=== PATIENT | male | born 1995 | race Caucasian/White ===

== ENCOUNTER 2023-06-25 20:00 | Emergency (ER) | payer OTHER, MEDICAID, SELFPAY ==
[2023-06-25 20:34] VITALS: BP 112/61; PULSE 74; RESP 16; TEMP 37; O2SAT 100; BMI 29.8
--- NOTE | 2023-06-25 20:37 | DI.RAD.S_ITS ---
PROCEDURE: XR FINGER LT MIN 2V INDICATIONS: bent finger back while wrestling TECHNIQUE: AP hand, 2 views of the 3rd digit acquired. COMPARISON: None. FINDINGS: Bones: There is a small linear calcification along the volar aspect of the 3rd proximal phalanx suggestive of a small avulsion fracture. No dislocations. No suspicious bony lesions. Soft tissues: There is periarticular soft tissue swelling at the 3rd proximal to phalangeal joint. IMPRESSION: 1. Small avulsion fracture along the volar aspect of the 3rd proximal phalanx at the PIP joint. Dictated by: Denis Cochran M.D. on 06/25/2023 at 22:15 Approved by: Densi Cochran M.D. on 06/25/2023 at 22:18
--- NOTE | 2023-06-25 22:05 | ED_ITS ---
HPI - Extremity Injury (Upper) General Chief Complaint: Extremity Injury, Upper Stated Complaint: Thinks broken finger Time Seen by Provider: 06/25/23 20:06 Source: patient Mode of arrival: Ambulatory History of Present Illness HPI narrative: 27-year-old male nonsmoker without chronic medical history presents with a chief complaint of an injury to his left middle finger yesterday. He states that he was sparring with a much larger partner who rolled over on his finger causing it to bend backwards. He felt immediate pain and states that there was a deformity that he realigned. He denies any numbness or tingling but does have pain in his left middle finger. Denies other injury and is otherwise well and free of complaint. Related Data Home Medications Medication Instructions Recorded Confirmed multivitamin (Multiple Vitamins 1 tab PO QDAY ##0 09/10/16 tablet) spironolactone 25 mg tablet 25 mg QDAY ##0 02/22/17 Previous Rx's Medication Instructions Recorded EPINEPHRINE (#EPI EZ PEN) 1 mg IM PRN ##1 07/15/11 VITAMIN D (Vitamin D3) 1,000 u PO QDAY #90 tabs 07/14/13 albuterol sulfate 2.5 mg/3 mL 3 ml INH PRN #25 mL 09/17/16 (0.083 %) solution for nebulization beclomethasone dipropionate 80 0 INH BID #2 inhalations 09/17/16 mcg/actuation aerosol inhaler (Qvar) sumatriptan succinate 100 mg 100 mg PO PRN PRN #9 tabs 11/06/16 tablet (Imitrex) prednisone 20 mg tablet 20 mg PO QDAY #5 tabs 03/01/17 Allergies Allergy/AdvReac Type Severity Reaction Status Date / Time nghia Allergy Severe ANAPHYLAXIS Verified 06/25/23 20:34 hydromorphone Allergy Intermediate HIVES Verified 06/25/23 20:34 amoxicillin Allergy Mild RASH Verified 06/25/23 20:34 codeine Allergy Mild RASH, Verified 06/25/23 20:34 DYSPNEA latex Allergy Mild REDNESS/SWE Verified 06/25/23 20:34 LLING ibuprofen Allergy Unknown Verified 06/25/23 20:34 Review of Systems Review of Systems Narrative: GENERAL: Denies chills, fatigue, malaise, fever, sweats. HEENT: Denies sinus pain, ear pain, sore throat, difficulty swallowing, dizziness. RESPIRATORY: Denies dyspnea, cough, wheezing, hemoptysis, sputum. CARDIOVASCULAR: Denies chest pain, palpitations, orthopnea, edema, GASTROINTESTINAL: Denies nausea, vomiting, abdominal pain, diarrhea, constipation, melena. : Denies dysuria, frequency, incontinence, hematuria, urinary retention. MUSCULOSKELETAL: See HPI SKIN: Denies rash, skin lesions, or other NEUROLOGIC: Denies weakness, headache, numbness, change in speech, confusion, seizures, incoordination. PSYCHIATRIC: No concerning psychosocial issues. 12 point review of systems is negative except for those stated above Patient History Social History Smoking Status: Never smoker Smoking Status: Never smoker Substance Use Type: marijuana Exam Narrative Exam Narrative: GEN: AOx3 and in mild distress EYES: Pupils are equal, round, and reactive to light and accommodation. Extraoccular muscles are intact bilaterally. There is no subconjunctival hemorrhage or exudate. CHEST: Lungs are clear to auscultation bilaterally and free of wheezes, rales, or rhonchi. Heart rate is regular rhythm, there are no murmurs, clicks, rubs, or gallops. There is no chest wall tenderness. ABD: Abdomen is soft and nontender. There is no guarding or rebound. Bowel sounds are normal in all 4 quadrants. There is no mass or organomegaly. EXT: Slightly decreased range of motion of left middle finger secondary to pain, this is closed, isolated and neurovascularly intact, most tender at the proximal interphalangeal joint, full strength with flexion and extension, ligamentous injury thought to be unlikely SKIN: Warm, pink, and dry. No erythema or rash Initial Vital Signs Initial Vital Signs: Vital Signs Temperature 98.6 F 06/25/23 20:34 Pulse Rate 74 06/25/23 20:34 Respiratory Rate 16 06/25/23 20:34 Blood Pressure 112/61 06/25/23 20:34 Pulse Oximetry 100 06/25/23 20:34 Oxygen Delivery Method Room Air 06/25/23 20:34 Procedures Orthopedic Splinting/Casting Injury #1: Side: left Upper Extremity Injury Location: finger Upper Extremity Immobilizer: aluminum form splint Post splinting neuro exam: intact Post splinting vascular exam: intact Placed by: Nursing Course Orders Ordered: ED Orders 06/25/23 20:37 XR finger LT min 2V Stat Vital Signs Vital signs: Vital Signs - 8 hr 06/25/23 20:34 Temperature 98.6 F Pulse Rate 74 Respiratory Rate 16 Blood Pressure 112/61 Pulse Oximetry 100 Oxygen Delivery Method Room Air MDM - Extremity Injury (Upper) MDM Narrative Medical decision making narrative: [27] year old patient presents with left middle finger injury Multiple etiologies for patient's symptoms considered including, but not limited to: [Fracture versus dislocation versus sprain versus ligamentous injury versus other] Prior Charts reviewed in our EMR Primary Historian: patient Imaging reviewed: Small avulsion fracture along the volar aspect of the 3rd proximal phalanx at the PIP History and physical exam are reassuring, this is closed, isolated and neurovascularly intact, Findings and discharge diagnosis discussed with patient/family followed by verbalization of understanding Return precautions discussed with patient/family whom verbalize understanding of diagnosis and plan Discharge Plan Departure Patient Disposition: Home Clinical Impression: Closed fracture of phalanx of left middle finger Instructions: DI for Finger Fracture Activity Restrictions/Additional Instructions: *You have been diagnosed with [small avulsion fracture of the 1st knuckle of your left middle finger.] *What to do: *Please continue to take your regular medications as directed. [ ] New medication prescriptions sent to your pharmacy: [ ] [ ] New medication written as a paper prescription [x] Tylenol and occasional Motrin for pain *Please follow up with [ Micheal] of [facility] in 2-3 days, call for an appointment. Let them know you were seen in the Emergency Department and that we ask that you be seen in follow up. We will electronically transmit a record of today's note if your PCP is in our system *Return to Emergency Department if you should have any new, worsening or concerning symptoms, such as [worsening pain, significant swelling, cold ex tremities, numbness, tingling, weakness or other bothersome symptoms Prescriptions: No Action EPINEPHRINE (#EPI EZ PEN) 1 mg IM PRN Qty: 1 1RF VITAMIN D (Vitamin D3) 1,000 u PO QDAY Qty: 90 1RF multivitamin [Multiple Vitamins] 1 EACH tablet 1 tab PO QDAY Qty: 0 albuterol sulfate 2.5 MG/3 ML solution for nebulization 3 ml INH PRN Qty: 25 0RF beclomethasone dipropionate [Qvar] 80 MCG/PUFF aerosol 0 INH BID Qty: 2 3RF sumatriptan succinate [Imitrex] 100 MG tablet 100 mg PO PRN PRNQty: 9 1RF spironolactone 25 MG tablet 25 mg QDAY Qty: 0 prednisone 20 MG tablet 20 mg PO QDAY Qty: 5 0RF Stand Alone Forms: Patient Portal/API
[2023-06-25 22:55] VITALS: BP 128/74; PULSE 76; RESP 18; O2SAT 99
== END 2023-06-25 22:55 | disposition home or self-care (01) ==
PROVIDERS: Emergency Provider Emergency Medicine
DX: S62.613A Displaced fracture of proximal phalanx of left middle finger, initial encounter for closed fracture (principal); X58.XXXA Exposure to other specified factors, initial encounter
CPT/HCPCS: 29130; 73140; 99283

== ENCOUNTER 2024-04-01 12:04 | Emergency (ER) | payer OTHER, MEDICAID, SELFPAY ==
[2024-04-01] VITALS (7 sets, daily range): BP systolic 124–142; BP diastolic 74–89; PULSE 120–128; RESP 16–22; TEMP 36.8; O2SAT 96–100; BMI 27.2
--- NOTE | 2024-04-01 12:14 | ED_ITS ---
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 2014), and residual VSD closure 2017. 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 Templeton on 03/01/24. Left main also requiring PCI to left main coronary artery on 03/09/2024 He is presenting today with gross drainage from his right groin incision. They went in there for surgery at some point. He now has some swelling and drainage. He is noted to be tachycardic in the 120s. He reports that before surgery his heart rate was in the 80s but since surgery it has been 110-120. He reports some shortness of breath with exertion. He reports that providers are wanting his heart to strengthen before they Re add his medications. Upon reviewing nose from [facility] it is confirmed that he has been persistently tachycardic 110 to 120s. Patient reports that he has had low-grade temperature last night there is area in his groin that reopened from surgery provider yesterday tried to just glue it however it does feel a little bit swollen Related Data Home Medications Medication Instructions Recorded Confirmed multivitamin (Multiple Vitamins 1 tab PO QDAY ##0 09/10/16 09/11/23 tablet) carvedilol 25 mg tablet 25 mg PO BID 09/11/23 09/11/23 carvedilol 6.25 mg tablet 6.25 mg PO BID 09/11/23 09/11/23 sacubitril 24 mg-valsartan 26 mg 1 tab PO BID 11/04/23 11/04/23 tablet (Entresto) Previous Rx's Medication Instructions Recorded EPINEPHRINE (#EPI EZ PEN) 1 mg IM PRN ##1 07/15/11 albuterol sulfate 2.5 mg/3 mL 3 ml INH PRN #25 mL 09/17/16 (0.083 %) solution for nebulization Allergies Allergy/AdvReac Type Severity Reaction Status Date / Time nghia Allergy Severe ANAPHYLAXIS Verified 09/11/23 09:11 hydromorphone Allergy Intermediate HIVES Verified 09/11/23 09:11 amoxicillin Allergy Mild RASH Verified 09/11/23 09:11 codeine Allergy Mild RASH, Verified 09/11/23 09:11 DYSPNEA latex Allergy Mild REDNESS/SWE Verified 09/11/23 09:11 LLING ibuprofen Allergy Unknown Verified 09/11/23 09:11 Penicillins Allergy Rash Verified 04/01/24 12:08 Patient History Social History Smoking Status: Former smoker Smoking Status: Former smoker Substance Use Type: does not use Exam Initial Vital Signs Initial Vital Signs: Vital Signs Temperature 98.3 F 04/01/24 12:08 Pulse Rate 120 H 04/01/24 12:08 Respiratory Rate 16 04/01/24 12:08 Blood Pressure 142/83 H 04/01/24 12:08 Pulse Oximetry 99 04/01/24 12:08 Oxygen Delivery Method Room Air 04/01/24 12:08 GENERAL: Alert pleasant 28-year-old male HEENT: Head atraumatic,EOMI, pupils reactive, face symmetric, moist mucous membranes CARDIOVASCULAR: Tachycardic regular RESPIRATORY: Breath sounds equal bilaterally, no wheezes rales or rhonchi. No conversational dyspnea ABDOMEN: Soft, nontender. Normoactive bowel sounds all 4 quadrants. No guarding or rebound. EXTREMITIES: Normal range of motion, no clubbing or edema. Neurovascularly intact NEUROLOGICAL: Alert and oriented x4.Normal gait and speech. SKIN: Warm, dry, no laceration, no petechiae, no rashes or lesions. Course Orders Ordered: ED Orders 04/01/24 12:28 US arterial duplex LE RT Stat 04/01/24 12:30 EKG-12 Lead Stat 04/01/24 13:15 Urinalysis and Microscopic Stat 04/01/24 13:29 Blood Culture Stat 04/01/24 13:40 Complete Blood Count AUTO DIFF Stat Comprehensive Metabolic Panel Stat Lactate (Lactic Acid) Stat NT-proBNP (BNP-Adult 18+) Stat PTT Partial Thromboplastin Demetri Stat Procalcitonin Stat Prothrombin Time INR Stat Troponin & CK Cardiac Panel Stat 04/01/24 14:58 Chest [XR chest 1V] Stat Vital Signs Vital signs: Vital Signs - 8 hr 04/01/24 12:08 04/01/24 12:15 04/01/24 12:15 Temperature 98.3 F Pulse Rate 120 H 121 H Respiratory Rate 16 Blood Pressure 142/83 H 129/84 Pulse Oximetry 99 96 Oxygen Delivery Method Room Air 04/01/24 12:30 04/01/24 13:00 04/01/24 13:30 Temperature Pulse Rate 122 H 123 H 124 H Respiratory Rate 20 Blood Pressure Pulse Oximetry 100 99 Oxygen Delivery Method 04/01/24 14:34 04/01/24 14:34 04/01/24 15:00 Temperature Pulse Rate 128 H 122 H Respiratory Rate 20 22 Blood Pressure 139/89 Pulse Oximetry 99 96 Oxygen Delivery Method Room Air 04/01/24 15:00 Temperature Pulse Rate Respiratory Rate Blood Pressure 124/74 Pulse Oximetry Oxygen Delivery Method MDM - Wound/Laceration Lab Data 04/01/24 13:40 04/01/24 13:40 Labs: Lab Results 04/01/24 04/01/24 Range/Units 13:15 13:40 WBC 9.9 (4.5-11.0) X10^3/uL RBC 3.56 L (4.5-5.9) X10^6/uL Hgb 10.7 L (13.5-17.5) g/dL Hct 33.1 L (41-53) % MCV 93.1 (80-100) fL MCH 30.0 (26-34) PG MCHC 32.2 (30-36) % RDW 18.7 H (11.6-14.8) % Plt Count 309 (150-400) X10^3/uL Neut % (Auto) 79.7 H (50-75) % Lymph % (Auto) 8.7 L (25-40) % [place] % (Auto) 8.0 (3-14) % Eos % (Auto) 2.4 (2-4) % Baso % (Auto) 1.2 (0-2) % Neut # (Auto) 7900 H (8266-8385) /uL Lymph # (Auto) 900 L (5832-7503) /uL [place] # (Auto) 800 (0-900) /uL Eos # (Auto) 200 (0-450) /uL Baso # (Auto) 100 (0-100) /uL PT 19.5 H (9.4-12.5) SECONDS INR 1.7 H (0.9-1.3) APTT 38 H (25.1-36.5) SECONDS Sodium 138 (137-145) mmol/L Potassium 3.9 (3.4-5.1) mmol/L Chloride 99 (98-107) mmol/L Carbon Dioxide 29 (22-32) mmol/L BUN 18 (9-20) mg/dL Creatinine 1.19 (0.66-1.25) mg/dL Estimated GFR > 60 (>60) mL/min BUN/Creatinine Ratio 15.1 (6-22) Glucose 113 H (70-100) mg/dL Lactate 1.2 (0.7-2.1) mmol/L Calcium 9.4 (8.4-10.2) mg/dL Total Bilirubin 1.3 (0.2-1.3) mg/dL AST 34 (17-59) IU/L ALT 19 (<50) IU/L Alkaline Phosphatase 373 H (38-126) U/L Total Creatine Kinase 35 L (55-170) U/L Troponin I 0.059 H (0.01-0.034) ng/mL NT-Pro-B Natriuret Pep 50111 H (<125) pg/mL Total Protein 8.5 H (6.3-8.2) g/dL Albumin 4.1 (3.5-5.0) g/dL Globulin 4.4 H (1.7-4.1) g/dL Albumin/Globulin Ratio 0.9 L (1.0-2.8) Procalcitonin 0.075 (<0.5) ng/mL Urine Color Yellow Urine Appearance Clear Urine pH 6.5 (4.5-8.0) Ur Specific [place] 1.010 (1.000-1.035) Urine Protein Trace H (Negative) Urine Glucose (UA) Negative (Negative) g/dL Urine Ketones Negative (NEGATIVE) Urine Occult Blood Negative (Negative) Urine Nitrate Negative (Negative) Urine Bilirubin Negative (NEGATIVE) Urine Urobilinogen 0.2 (0.2) E.U./dL Ur Leukocyte Esterase Negative (NEGATIVE) Urine RBC None seen (0-5/HPF) Urine WBC None seen (0-5/HPF) Ur Squamous Epith Cells None seen (0-5/HPF) Urine Bacteria None seen (None) Ur Culture Indicated? Cult not indicated Vol Urine Centrifuged 10ml (spun) Imaging Data Chest x-ray: Radiologist's Impression: PROCEDURE: XR CHEST 1V INDICATIONS: short of breath TECHNIQUE: One view of the chest was acquired. COMPARISON: Atul Zuniga, VLADISLAV, CHEST 2 VIEW, 11/24/2016, 10:51. Atul Zuniga, VLADISLAV, CHEST 2 VIEW, 06/07/2015, 12:06. FINDINGS: Surgical changes and devices: Right chest wall pacemaker. Median sternotomy wires. Aortic valvuloplasty. Lungs and pleura: Prominent interstitial markings. Possible left pleural effusion. Mediastinum: Mediastinal contours appear normal. Heart size is enlarged. Bones and chest wall: No suspicious bony lesions. Overlying soft tissues appear unremarkable. IMPRESSION: Cardiomegaly with prominent interstitial markings and possible left pleural effusion. Findings are concerning for congestive heart failure. Dictated by: Corey Salinas M.D. on 04/01/2024 at 14:24 ECG Data Attestation: I personally reviewed and interpreted this ECG as follows: Prior ECG tracings: not available for review Interpretation: Paced rhythm rate 119 KS interval 130 QRS 164 QTC 565 [facility] Narrative Medical decision making narrative: [facility] CC: Right groin drainage after procedure Complicating co-morbidities: Complicated cardiac history recent surgery and hospitalization with Corroborating data: [ ] Data collected from:girlfriend Medical records reviewed: [facility] records have been reviewed Differential considered: Pulmonary embolism congestive heart failure, sepsis pseudoaneurysm abscess seroma Exam documented above, pertinent findings include: Right gumline fluctuation minimally erythematous gross clear drainage no foul difficult to palpate right femoral pulse Lab Test results independently reviewed as above. Pertinent findings: Troponin 0.059, BNP 80498, creatinine 1.19 Independently reviewed EKG as above paced rhythm no ischemic changes Imaging studies independently reviewed: Chest x-ray reviewed with possible left pleural effusion and cardiomegaly consistent for congestive heart failure. Ultrasound shows 9 mm saccular aneurysm along with a 6.9 cm complex fluid collection seroma or stoma in right groin Consultations: 15:50 Dr. Lagunas CVT at [facility], updated on patient's symptoms test results where that patient is refusing CT for PE which he was okay with. Not concerned about minimally elevated troponin. Talked about possible antibiotics for seroma but without fever leukocytosis agrees with no antibiotics. Recommends some sort of pressure and dressing like spandex shorts. He has a appointment with Cardiology April 05 and April 06 on already scheduled. Treatments: None Re-evaluations: Very difficult to start an IV required nursing peripheral IV placement Discussion: Patient 28-year-old male with significantly complicated cardiac history presenting today with drainage his right groin. There is a large seroma found 9 mm pseudo aneurysm also there. He is afebrile unlikely to be infected or abscess at this time. Patient is noted to be tachycardic he reports that he is constantly tachycardic which is confirmed by [facility] records. BNP is also noted to be elevated but he has not hypoxic he probably has high normal level he has no evidence of fluid overload at this time no peripheral edema on exam. He is also taking Lasix he reports that he gained 2 lb over last day or so and resumed his Lasix. Patient refused CT angio because he only has 1 kidney and does not want contrast. Again hypoxic is persistently tachycardic and has been though he is at risk he does not want to and understands. Patient overall surprisingly appears well. He does have fluid drainage in the right groin no significant erythema symptoms are consistent with a seroma Patient will follow-up this week at [facility] as previously scheduled no need for antibiotics at this time no evidence of sepsis. Discharge Plan Departure Patient Disposition: Home Clinical Impression: Seroma Activity Restrictions/Additional Instructions: *You have been diagnosed with seroma *What to do: Try to keep pressure on the right groin area. Lots of gauze bandage shorts. Please follow-up with your doctors this week on April 05 and April 06 as scheduled *Continue to take medications as directed *Follow up with your primary care provider in 2-3 days or call [phone] *Return to ER if you should have increasing shortness of breath fever redness or any new, worsening or concerning symptoms Prescriptions: No Action carvedilol 6.25 mg tablet 6.25 mg PO BID carvedilol 25 mg tablet 25 mg PO BID Entresto 24-26 mg tablet 1 tab PO BID EPINEPHRINE (#EPI EZ PEN) 1 mg IM PRN Qty: 1 1RF multivitamin [Multiple Vitamins] 1 EACH tablet 1 tab PO QDAY Qty: 0 albuterol sulfate 2.5 MG/3 ML solution for nebulization 3 ml INH PRN Qty: 25 0RF Referrals: Miscellaneous,Doctor, MD [Primary Care Provider] - Stand Alone Forms: Patient Portal/API
--- NOTE | 2024-04-01 12:28 | DI.US.S_ITS ---
PROCEDURE: US ARTERIAL DUPLEX LE RT INDICATIONS: Rule out pseudoaneurysm, possible abscess TECHNIQUE: Color and pulse Doppler interrogation was performed of the right lower extremity arterial system, with image documentation. COMPARISON: None. FINDINGS: Common femoral artery: Under crystal cm/sec, with triphasic flow. Deep femoral artery: 128 cm/sec, with triphasic flow. Rogers-scale imaging description: In the right groin there is a complex septated fluid collection with internal debris measuring 4.2 x 6.9 x 4.0 cm, possible seroma. There is outpouching at the distal common femoral artery just before the bifurcation measuring 9 x 8 x 6 mm with to and fro flow. IMPRESSION: 1. Small outpouching at the distal common femoral artery just before the bifurcation measures up to 9 mm, concerning for saccular aneurysm. 2. Complex collection in the right groin measuring up to 6.9 cm with internal debris, may represent seroma or hematoma. No internal flow is seen. Dictated by: Corey Salinas M.D. on 04/01/2024 at 14:00 Approved by: Corey Salinas M.D. on 04/01/2024 at 14:02
[2024-04-01 13:45] LABS: Appearance Urine UA CLEAR; Bilirubin Urine UA NEGATIVE (NEGATIVE); Color Urine UA YELLOW; Glucose Urine UA NEGATIVE (Negative); Ketones Urine UA NEGATIVE (NEGATIVE); Leukocyte Esterase Urine UA NEGATIVE (NEGATIVE); Nitrite Urine UA NEGATIVE (Negative); Occult Blood Urine UA NEGATIVE (Negative); Protein Urine UA TRACE (Negative); Urobilinogen Urine UA 0.2 E.U./dL (0.2); pH Urine UA 6.5 (4.5-8.0)
[2024-04-01 13:53] LABS: Add Manual Diff / Slide Review NO; Basophils Absolute Auto 100 /uL (0-100); Basophils Percent Auto 1.2 % (0-2); Eosinophils Absolute Auto 200 /uL (0-450); Eosinophils Percent Auto 2.4 % (2-4); Hematocrit 33.1 % (41-53); Hemoglobin 10.7 g/dL (13.5-17.5); Lymphocytes Absolute Auto 900 /uL (1100-4500); Lymphocytes Percent Auto 8.7 % (25-40); Mean Corpuscular HGB Conc 32.2 % (30-36); Mean Corpuscular Volume 93.1 fL (80-100); Monocytes Absolute Auto 800 /uL (0-900); Neutrophils Absolute Auto 7900 /uL (1500-7000); Neutrophils Percent Auto 79.7 % (50-75); Platelet Count 309 X10^3/uL (150-400); Red Blood Cell Count 3.56 X10^6/uL (4.5-5.9); Red Cell Distribution Width 18.7 % (11.6-14.8); White Blood Cell Count 9.9 X10^3/uL (4.5-11.0)
[2024-04-01 13:53] LABS: Bacteria Urine None Seen; Culture Indicated Urine Cult Not Indicated; RBC Urine None Seen (0-5/HPF); Squamous Epithelial Cell Urine None Seen (0-5/HPF); Urine Volume 10mL (spun); WBC Urine None Seen (0-5/HPF)
[2024-04-01 14:02] LABS: INR 1.7 (0.9-1.3); Prothrombin Time 19.5 SECONDS (9.4-12.5)
[2024-04-01 14:03] LABS: PTT Partial Thromboplastin Tim 38 SECONDS (25.1-36.5)
[2024-04-01 14:04] LABS: Alanine Aminotransferase 19 IU/L (<50); Albumin 4.1 g/dL (3.5-5.0); Albumin Globulin Ratio 0.9 (1.0-2.8); Alkaline Phosphatase 373 U/L (38-126); Aspartate Aminotransferase 34 IU/L (17-59); BUN Creatinine Ratio 15.1 (6-22); Bilirubin Total 1.3 mg/dL (0.2-1.3); Blood Urea Nitrogen 18 mg/dL (9-20); Calcium 9.4 mg/dL (8.4-10.2); Carbon Dioxide 29 mmol/L (22-32); Chloride 99 mmol/L (98-107); Creatine Kinase 35 U/L (55-170); Estimated Glomerular Filt Rate > 60 mL/min (>60); Globulin 4.4 g/dL (1.7-4.1); Glucose 113 mg/dL (70-100); HEMOLYSIS < 15 (0-50); Potassium 3.9 mmol/L (3.4-5.1); Sodium 138 mmol/L (137-145); Total Protein 8.5 g/dL (6.3-8.2)
[2024-04-01 14:05] LABS: Lactate (Lactic Acid) 1.2 mmol/L (0.7-2.1)
[2024-04-01 14:13] LABS: NT-proBNP (BNP-Adult 18+) 12200 pg/mL (<125)
[2024-04-01 14:16] LABS: Troponin I 0.059 ng/mL (0.01-0.034)
[2024-04-01 14:21] LABS: Procalcitonin 0.075 ng/mL (<0.5)
--- NOTE | 2024-04-01 14:58 | DI.RAD.S_ITS ---
PROCEDURE: XR CHEST 1V INDICATIONS: short of breath TECHNIQUE: One view of the chest was acquired. COMPARISON: VLADISLAV Miner, CHEST 2 VIEW, 11/24/2016, 10:51. VLADISLAV Miner, CHEST 2 VIEW, 06/07/2015, 12:06. FINDINGS: Surgical changes and devices: Right chest wall pacemaker. Median sternotomy wires. Aortic valvuloplasty. Lungs and pleura: Prominent interstitial markings. Possible left pleural effusion. Mediastinum: Mediastinal contours appear normal. Heart size is enlarged. Bones and chest wall: No suspicious bony lesions. Overlying soft tissues appear unremarkable. IMPRESSION: Cardiomegaly with prominent interstitial markings and possible left pleural effusion. Findings are concerning for congestive heart failure. Dictated by: Corey Salinas M.D. on 04/01/2024 at 14:24 Approved by: Corey Salinas M.D. on 04/01/2024 at 14:24
== END 2024-04-01 16:00 | disposition home or self-care (01) ==
PROVIDERS: Emergency Provider Emergency Medicine
DX: L76.34 Postprocedural seroma of skin and subcutaneous tissue following other procedure (principal); R03.0 Elevated blood-pressure reading, without diagnosis of hypertension
CPT/HCPCS: 36415; 71045; 80053; 81001; 82550; 83605; 83880; 84145; 84484; 85025; 85610; 85730; 87040; 93005; 93926; 99284

== ENCOUNTER 2024-08-24 12:30 | Outpatient (RCR) | payer OTHER, MEDICAID, SELFPAY | END 2024-08-24 14:00 | LOC: CAR 12:30 | PROVIDERS: Referring Provider Physician Assistant Medical; Visit Provider Physician Assistant Medical | DX: Z95.2 Presence of prosthetic heart valve (principal) | CPT/HCPCS: 93798 ==